=== PATIENT | male | born 1945 | race Caucasian/White ===

== ENCOUNTER 2021-02-21 17:04 | Emergency (ER) | payer BC ==
[~2021-02-21] VITALS: Ht 182.9 cm; Wt 102.0 kg
[2021-02-21] MEDS ORDERED: IV NORMAL SALINE 500ML 500 ML IV ONE (18:00)
--- NOTE | 2021-02-21 18:34 | PHYS DOC ---
Past History Past Surgical History: No Surgical History (FRANCES KEITH) Alcohol Use: None (FRANCES KEITH) General Adult EDM: Chief Complaint: DIARRHEA HPI: HPI: Patient is a 75 year old male who presents with 2-week history of fatigue, diarrhea, headache. Patient reports associated 2 episodes of emesis and a cough for 2 days. Patient's also feels ill. Neither him nor his were vaccinated against COVID-19. Patient has no other complaints at this time. (FRANCES KEITH) Review of Systems: Review of Systems: Constitutional: See HPI HENT: Denies nasal congestion or sore throat Respiratory: See HPI Cardiovascular: Denies chest pain or edema GI: See HPI : Denies dysuria or hematuria Integument: Denies rash or other skin lesions Neurologic: Denies focal weakness or sensory changes (FRANCES KEITH) Current Medications: Current Meds: Current Medications Medications (Trade) Dose Ordered Sig/Kallie Start Time Stop Time Status Last Admin Dose Admin Sodium Chloride 500 ml @ 0 mls/hr 1X ONCE 02/21/21 18:00 02/21/21 18:01 DC (FRANCES KEITH) Allergies: Allergies: Allergies Coded Allergies Type Severity Reaction Last Updated Verified No Known Drug Allergies 02/21/21 No (FRANCES KEITH) Physical Exam: PE: Constitutional: Well developed, well nourished, no acute distress, non-toxic appearance. HENT: Normocephalic, atraumatic, bilateral external ears normal, oropharynx moist, no oral exudates, nose normal. Neck: Normal range of motion, no tenderness, supple, no stridor. Cardiovascular: Heart rate regular rhythm, no murmur. Lungs & Thorax: Decreased breath sounds diffuse without wheezing, rales or rhonchi. Abdomen: Bowel sounds normal, soft, no tenderness, no masses, no pulsatile masses. Skin: Warm, dry, no erythema, no rash. Extremities: No tenderness, no cyanosis, no clubbing, ROM intact, no edema. Neurologic: Alert and oriented x3, normal motor function, no focal deficits noted. (FRANCES KEITH) Current Patient Data: Labs: Laboratory Tests Test 02/21/21 18:25 White Blood Count 2.4 x10^3/uL (4.0-11.0) Red Blood Count 4.87 x10^6/uL (4.30-5.70) Hemoglobin 16.0 g/dL (13.0-17.5) Hematocrit 45.7 % (39.0-53.0) Mean Corpuscular Volume 94 fL (79-100) Mean Corpuscular Hemoglobin 33 pg (25-35) Mean Corpuscular Hemoglobin Concent 35 g/dL (31-37) Red Cell Distribution Width 14.1 % (11.5-14.5) Platelet Count 99 x10^3/uL (140-400) Neutrophils (%) (Auto) 68 % (31-73) Lymphocytes (%) (Auto) 17 % (24-48) Monocytes (%) (Auto) 15 % (0-9) Eosinophils (%) (Auto) 0 % (0-3) Basophils (%) (Auto) 1 % (0-3) Neutrophils # (Auto) 1.6 x10^3uL (1.8-7.7) Lymphocytes # (Auto) 0.4 x10^3/uL (1.0-4.8) Monocytes # (Auto) 0.4 x10^3/uL (0.0-1.1) Eosinophils # (Auto) 0.0 x10^3/uL (0.0-0.7) Basophils # (Auto) 0.0 x10^3/uL (0.0-0.2) Segmented Neutrophils % 71 % (35-66) Lymphocytes % 13 % (24-48) Monocytes % 16 % (0-10) Platelet Estimate Decreased (ADEQUATE) Large Platelets Occ Sodium Level 130 mmol/L (136-145) Potassium Level 3.1 mmol/L (3.5-5.1) Chloride Level 99 mmol/L (98-107) Carbon Dioxide Level 24 mmol/L (21-32) Anion Gap 7 (6-14) Blood Urea Nitrogen 18 mg/dL (8-26) Creatinine 0.8 mg/dL (0.7-1.3) Estimated GFR (Cockcroft-Gault) 93.7 BUN/Creatinine Ratio 23 (6-20) Glucose Level 124 mg/dL (70-99) Calcium Level 8.1 mg/dL (8.5-10.1) Total Bilirubin 0.9 mg/dL (0.2-1.0) Aspartate Amino Transf (AST/SGOT) 40 U/L (15-37) Alanine Aminotransferase (ALT/SGPT) 66 U/L (16-63) Alkaline Phosphatase 40 U/L (46-116) Total Protein 6.1 g/dL (6.4-8.2) Albumin 3.0 g/dL (3.4-5.0) Albumin/Globulin Ratio 1.0 (1.0-1.7) Lipase 154 U/L (73-393) Vital Signs: VS - Last 72 Hours, by Label Date Time Temp Pulse Resp B/P (MAP) Pulse Ox O2 Delivery O2 Flow Rate FiO2 02/21/21 19:36 76 20 127/83 (98) 92 02/21/21 18:37 76 135/83 (100) 90 02/21/21 17:26 95 134/91 (105) 93 02/21/21 17:25 98.2 94 24 134/91 (105) 93 (FRANCES KEITH) Radiology/Procedures: Radiology/Procedures: PROCEDURE: PORTABLE CHEST 1V EXAMINATION: Chest radiograph. VIEWS: 1 COMPARISON: 06/13/2016 INDICATION:75 years, Male, cough. FINDINGS: Normal cardiomediastinal silhouette. Increased bilateral perihilar opacities. No focal consolidation. No pleural effusion or pneumothorax. No acute osseous process. IMPRESSION: Increased bilateral perihilar opacities, could represent infectious/inflammatory bronchiolitis. No focal consolidation. Electronically signed by: Shobha Rogers MD (02/21/2021 7:43 PM) [facility] (FRANCES KEITH) Heart Score: C/O Chest Pain: No (FRANCES KEITH) Course & Med Decision Making: Course & Med Decision Making Pertinent Labs and Imaging studies reviewed. (See chart for details) Patient's was seen in the department directly prior to the patient. Her Covid test did come back positive. At this point, patient has known exposure and is symptomatic. Patient initially did not want to receive a chest x-ray secondary to fear of the cost. I spoke with the patient about his health insurance and encouraged him to allow us to evaluate for pneumonia. I did offer an alternative of CT, which he declined. Patient lab work consistent with dehydration. Patient was provided with a full liter of fluids here in the emergency department. Chest x-ray also consistent with Covid pneumonia. Patient will be discharged home with a Z-Vladimir and instructions to quarantine. He will be notified of his Covid test results when they are available tomorrow. Patient understands and is agreeable to discharge plan. (FRANCES KEITH) Jeanineon Disclaimer: Dragkristan Disclaimer: This electronic medical record was generated, in whole or in part, using a voice recognition dictation system. (FRANCES KEITH) Departure Departure: Impression: Primary Impression: Viral syndrome Disposition: HOME / SELF CARE / HOMELESS Condition: STABLE Referrals: DOMINIK MEDINA (PCP) Patient Instructions: Pneumonia, Adult, Moiw-sl-Ffut, Potassium Content of Foods Additional Instructions: Your labs today revealed some dehydration as well as low potassium. You were treated with IV fluids. Please adjust your diet to include foods high in potassium. You may follow-up with your primary care provider after your period of quarantine and have it rechecked. Please return to the emergency department if you have any new symptoms or worsening symptoms, especially shortness of breath or other difficulty breathing. You have been tested for or diagnosed with COVID-19. It is an infection caused by a new type of coronavirus. COVID-19 will cause cold-like or mild flu symptoms in most. It can cause more severe symptoms like problems breathing in some. There is no treatment for COVID-19. The body will clear the infection over time. Self-care will help to ease discomfort. Steps to Take: Self-Care Rest as needed. Healthy habits may help you feel better. Steps include: Choose healthy foods including fruits and vegetables. Drink water throughout the day. Get plenty of sleep each night. If you smoke, try to quit. It may ease breathing. Avoid alcohol. Keep Others Healthy The virus can spread to others. Droplets are released every time you sneeze or cough. The droplets can get into the mouth, nose, or eyes of people near you and lead to infection. To lower the chances of spreading COVID-19 to others: Stay at home until your doctor has said it is safe to leave. If you tested positive this will mean staying isolated until both of the following are true: At least 7 days have passed since the start of illness. You are free of fever for at least 72 hours without the use of medicine. During this time: - Avoid public areas, events, or transportation. Do not return to work or school until your doctor has said it is safe to do so. - Call ahead if you need to go to a medical center. Let them know you may have COVID-19. It will help them guide you where to go. They may also ask you to wear a facemask when you come to the office. - If you call for emergency medical services, let them know you may have COVID- 19. While at home: - Try to avoid close contact with others. Stay about 6 feet away. - If possible, spend most of your time in a separate room from others. - Use a face mask if you will be in close contact with others such as sharing a room or vehicle. - Have someone wipe down common surfaces in the home. Use household technology program manager every day on areas like doorknobs, counters, or sinks. - Cough or sneeze into a tissue. Throw the tissue away right after use. If a tissue is not available, cough or sneeze into your elbow. - Wash your hands often. Wash them after sneezing or coughing. Use soap and water and wash for at least 20 seconds. Alcohol based hand belt cleaner can be used if soap and water is not available. - Do not prepare food for others. Avoid sharing personal items like forks, spoons, or toothbrushes. - Avoid close contact with pets while you are sick. There is no evidence of the virus passing to pets. This is a safety step until more is known about this virus. Isolation can be frustrating. Social interaction can help. Keep in touch with friends and family through phone and tech options. You can still interact with others in your home, just keep a safe distance of about 6 feet. Follow-up: Your doctors office will check in with you to see if there are any changes in your health. You may be asked to keep track of symptoms to share with them. They will also let you know when you are clear to be in public again. Problems to Look Out For: Contact your doctor if your recovery is not going as you expect. Get emergency care if you have problems such as: - Trouble breathing - Nonstop chest pain or pressure - Changes in awareness, confusion, or problems waking - Lips or face have bluish color - Worsening of symptoms If you think you have an emergency, call for emergency medical services right away. As taken from [facility] Albuterol Sulfate (PROAIR HFA INHALER) 8.5 Gm Hfa.aer.ad 2 PUFF IH PRN Q4-6HRS PRN for wheezing for 21 Days, #1 INHALER 0 Refills as needed for wheezing Prov: FRANCES KEITH 02/21/21 Azithromycin (ZITHROMAX) 250 Mg Tablet 1 PKG PO UD for pna, #1 PKG Take tablets by mouth as directed. Prov: FRANCES KEITH 02/21/21 Attending Signature Attending Signature I have reviewed the PA/ANALYSIS MANAGER's note and plan of care. I was available for consultation as needed during the patient's visit in the emergency department. I agree with the clinical impression, plan, and disposition. (MEAGAN DOWD DO) FRANCES KEITH Feb 21, 2021 18:34 MEAGAN DOWD DO Feb 21, 2021 23:27
[2021-02-21 18:59] LABS: BASO % 1 % (0-3); EOS % 0 % (0-3); HEMATOCRIT 45.7 % (39.0-53.0); LYMPH # 0.4 x10^3/uL (1.0-4.8); LYMPH % 17 % (24-48); MEAN CORPUSCULAR HEMOGLOBIN 33 pg (25-35); MEAN CORPUSCULAR HGB CONC 35 g/dL (31-37); MEAN CORPUSCULAR VOLUME 94 fL (79-100); MONO # 0.4 x10^3/uL (0.0-1.1); MONO % 15 % (0-9); NEUT # 1.6 x10^3uL (1.8-7.7); NEUT % 68 % (31-73); PLATELET COUNT 99 x10^3/uL (140-400); RED BLOOD COUNT 4.87 x10^6/uL (4.30-5.70); RED CELL DISTRIBUTION WIDTH 14.1 % (11.5-14.5); WHITE BLOOD COUNT 2.4 x10^3/uL (4.0-11.0)
[2021-02-21 19:02] LABS: CALCIUM 8.1 mg/dL (8.5-10.1); CREATININE 0.8 mg/dL (0.7-1.3); GFR 93.7; POTASSIUM 3.1 mmol/L (3.5-5.1)
[2021-02-21 19:07] LABS: TOTAL BILIRUBIN 0.9 mg/dL (0.2-1.0); TOTAL PROTEIN 6.1 g/dL (6.4-8.2)
[2021-02-21 19:36] VITALS: BP 127/83
--- NOTE | 2021-02-21 19:45 | RAD ---
EXAMINATION: Chest radiograph. VIEWS: 1 COMPARISON: 06/13/2016 INDICATION:75 years, Male, cough. FINDINGS: Normal cardiomediastinal silhouette. Increased bilateral perihilar opacities. No focal consolidation. No pleural effusion or pneumothorax. No acute osseous process. IMPRESSION: Increased bilateral perihilar opacities, could represent infectious/inflammatory bronchiolitis. No fo lara consolidation. Electronically signed by: Shobha Rogers MD (02/21/2021 7:43 PM) [facility]
[2021-02-21 19:53] LABS: % LYMPHS 13 % (24-48); % MONOS 16 % (0-10); % SEGS 71 % (35-66)
[2021-02-21 19:54] LABS: PLT ESTIMATE DECREASED (ADEQUATE)
[2021-02-21] MEDS ORDERED: AZIT250T PO (20:04)
[2021-02-21] MEDS ORDERED: ALBU2.5V8 IH (20:04)
== END 2021-02-21 20:26 | disposition home or self-care (01) ==
LOC: ER 17:04
DX: U07.1 COVID-19 (principal); B34.9 Viral infection, unspecified; R51.9 Headache, unspecified; R19.7 Diarrhea, unspecified
CPT/HCPCS: 71045; 80053; 83690; 85007; 85025; 96360; 96361; 99284; C9803; J7040; U0003